=== PATIENT | female | born 1995 | race Caucasian/White ===

== ENCOUNTER → 2024-11-05 | Outpatient (CLI) | payer OTHER | END | disposition home or self-care (01) | LOC: WOUNDCARE 11:05 | PROVIDERS: ATTEND Nurse Practitioner Family | DX: T81.89XA Other complications of procedures, not elsewhere classified, initial encounter (principal); E10.622 Type 1 diabetes mellitus with other skin ulcer; L97.812 Non-pressure chronic ulcer of other part of right lower leg with fat layer exposed; L98.491 Non-pressure chronic ulcer of skin of other sites limited to breakdown of skin; E10.69 Type 1 diabetes mellitus with other specified complication; M86.171 Other acute osteomyelitis, right ankle and foot; A49.01 Methicillin susceptible Staphylococcus aureus infection, unspecified site; D72.819 Decreased white blood cell count, unspecified; D72.821 Monocytosis (symptomatic); D68.51 Activated protein C resistance; Z98.51 Tubal ligation status; Z90.49 Acquired absence of other specified parts of digestive tract; Z98.890 Other specified postprocedural states; Z79.4 Long term (current) use of insulin; Z79.899 Other long term (current) drug therapy; Y83.8 Other surgical procedures as the cause of abnormal reaction of the patient, or of later complication, without mention of misadventure at the time of the procedure; Y92.89 Other specified places as the place of occurrence of the external cause ==

== ENCOUNTER → 2024-11-12 | Outpatient (CLI) | payer OTHER | END | disposition home or self-care (01) | LOC: WOUNDCARE 02:50 | PROVIDERS: ATTEND Nurse Practitioner Family | DX: T81.89XD Other complications of procedures, not elsewhere classified, subsequent encounter (principal); E10.622 Type 1 diabetes mellitus with other skin ulcer; L98.491 Non-pressure chronic ulcer of skin of other sites limited to breakdown of skin; E10.69 Type 1 diabetes mellitus with other specified complication; M86.179 Other acute osteomyelitis, unspecified ankle and foot; A49.01 Methicillin susceptible Staphylococcus aureus infection, unspecified site; D72.819 Decreased white blood cell count, unspecified; D72.821 Monocytosis (symptomatic); D68.51 Activated protein C resistance; Z98.51 Tubal ligation status; Z90.49 Acquired absence of other specified parts of digestive tract; Z98.890 Other specified postprocedural states; Z79.4 Long term (current) use of insulin; Z79.899 Other long term (current) drug therapy; Y83.8 Other surgical procedures as the cause of abnormal reaction of the patient, or of later complication, without mention of misadventure at the time of the procedure ==

== ENCOUNTER → 2024-11-20 | Outpatient (CLI) | payer OTHER | END | disposition home or self-care (01) | LOC: WOUNDCARE 00:43 | PROVIDERS: ATTEND Nurse Practitioner Family | DX: T81.89XD Other complications of procedures, not elsewhere classified, subsequent encounter (principal); E10.622 Type 1 diabetes mellitus with other skin ulcer; L98.491 Non-pressure chronic ulcer of skin of other sites limited to breakdown of skin; E10.69 Type 1 diabetes mellitus with other specified complication; M86.179 Other acute osteomyelitis, unspecified ankle and foot; A49.01 Methicillin susceptible Staphylococcus aureus infection, unspecified site; D72.819 Decreased white blood cell count, unspecified; D72.821 Monocytosis (symptomatic); D68.51 Activated protein C resistance; Z90.49 Acquired absence of other specified parts of digestive tract; Z98.51 Tubal ligation status; Z98.890 Other specified postprocedural states; Z79.4 Long term (current) use of insulin; Z79.899 Other long term (current) drug therapy; Y83.8 Other surgical procedures as the cause of abnormal reaction of the patient, or of later complication, without mention of misadventure at the time of the procedure ==